=== PATIENT | female | born 1995 | race American Indian/Alaskan Native ===

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

== ENCOUNTER 2017-08-31 07:28 | Emergency (ER) | payer MEDICAID ==
[2017-08-31 07:52] VITALS: BP 113/76
--- NOTE | 2017-08-31 08:04 | Emergency Department Report ---
ED Female HPI - General Chief complaint: Urogenital-Female Stated complaint: HERPES Time Seen by Provider: 08/31/17 08:04 Source: patient Mode of arrival: Ambulatory Limitations: No Limitations - History of Present Illness Initial comments: Patient here requesting to be treated for herpes because she says she has a operated started 3 days ago. She said her partner got infected with herpes and was treated by a clinic and she is here to get treated also. She says she has vaginal sores as painful and this started 3 days ago. Negative fever or chills. Denies any nausea or vomiting. Denies any vaginal bleeding or discharge. Denies any abdominal pain. Last menstrual period was one 2017. Denies any urinary burning frequency or urgency. MD Complaint: possible STD (herpes simplex) Onset/Timin -: days(s) Location: labia Radiation: non-radiating Severity: mild Severity scale (0 -10): 3 Quality: burning Consistency: intermittent Improves with: none Worsens with: none Are you Now?: No Last Menstrual Period: 08/30/17 EDC: 06/06/18 Associated Symptoms: rash (vaginal rash). denies: vaginal discharge, vaginal bleeding, abdominal pain, nausea/vomiting, fever/chills, headaches, loss of appetite, dysuria, hematuria, seizure, shortness of breath, syncope, weakness - Related Data Sexually active: Yes Previous Rx's Medication Instructions Recorded Last Taken Type Ferrous Sulfate [Feosol 325 MG tab] 325 mg PO BID #60 tablet 10/09/16 Unknown Rx HYDROcodone/APAP 5-325 [[place] 2 each PO Q6H PRN #20 tablet 10/09/16 Unknown Rx 5-325 mg TAB] Ibuprofen [Motrin 600 MG tab] 600 mg PO Q6H #30 tablet 10/09/16 Unknown Rx Valacyclovir HCl [Valtrex] 1,000 mg PO TID 7 Days #21 tablet 08/31/17 Unknown Rx Allergies Allergy/AdvReac Type Severity Reaction Status Date / Time No Known Allergies Allergy Verified 10/07/16 11:52 ED Review of Systems ROS: Stated complaint: HERPES Other details as noted in HPI Comment: All other systems reviewed and negative Constitutional: no symptoms reported ENT: denies: ear pain, throat pain, congestion Respiratory: no symptoms reported Cardiovascular: denies: chest pain, palpitations, dyspnea on exertion, edema, syncope, paroxysmal nocturnal dyspnea Gastrointestinal: denies: abdominal pain, nausea, vomiting, diarrhea, constipation Genitourinary: other (vaginal rash). denies: urgency, dysuria, frequency, hematuria, discharge Skin: lesions Neurological: denies: headache, abnormal gait ED Past Medical Hx - Past Medical History Previous Medical History?: Yes Hx Hypertension: No Hx Congestive Heart Failure: No Hx Diabetes: No Hx Deep Vein Thrombosis: No Hx Renal Disease: No Hx Sickle Cell Disease: No Hx Seizures: No Hx Asthma: No Hx COPD: No Hx HIV: No Additional medical history: Herpes genitalia - Surgical History Past Surgical History?: No - Family History Family history: hypertension - Social History Smoking Status: Current Every Day Smoker Substance Use Type: Marijuana - Medications Home Medications: Home Medications Medication Instructions Recorded Confirmed Last Taken Type Ferrous Sulfate [Feosol 325 MG tab] 325 mg PO BID #60 tablet 10/09/16 Unknown Rx HYDROcodone/APAP 5-325 [[place] 2 each PO Q6H PRN #20 tablet 10/09/16 Unknown Rx 5-325 mg TAB] Ibuprofen [Motrin 600 MG tab] 600 mg PO Q6H #30 tablet 10/09/16 Unknown Rx Valacyclovir HCl [Valtrex] 1,000 mg PO TID 7 Days #21 tablet 08/31/17 Unknown Rx ED Physical Exam - General Limitations: No Limitations General appearance: alert, in no apparent distress - Head Head exam: Present: atraumatic, normocephalic, normal inspection - Eye Eye exam: Present: normal appearance, PERRL, EOMI. Absent: periorbital swelling , periorbital tenderness Pupils: Present: normal accommodation - ENT ENT exam: Present: normal exam, normal orophraynx, mucous membranes moist - Neck Neck exam: Present: normal inspection, full ROM, other (no C-spine tenderness). Absent: tenderness, meningismus, lymphadenopathy - Respiratory Respiratory exam: Present: normal lung sounds bilaterally. Absent: respiratory distress, chest wall tenderness - Cardiovascular Cardiovascular Exam: Present: regular rate, normal rhythm, normal heart sounds. Absent: systolic murmur, diastolic murmur - GI/Abdominal GI/Abdominal exam: Present: soft, normal bowel sounds. Absent: distended, tenderness, guarding, rebound, rigid - External exam: Present: lesions (herpetic lesions scattered sparsely to the vaginal area mostly to the labia majora. Tender to palpate. Erythema). Absent : erythema, swelling, lacerations, ecchymosis, bleeding - Expanded Exam Expanded Female exam: Present: herpetic lesions, vulvar erythema, vulvar tenderness. Absent: foreign body - Extremities Exam Extremities exam: Present: normal inspection, full ROM, normal capillary refill , other (No clubbing, cyanosis or edema. +2 pulses to all extremities. no neurovascular compromise.). Absent: tenderness, pedal edema, joint swelling, calf tenderness - Back Exam Back exam: Present: normal inspection, full ROM. Absent: tenderness, CVA tenderness (R), CVA tenderness (L), muscle spasm, paraspinal tenderness, vertebral tenderness, rash noted - Neurological Exam Neurological exam: Present: alert, oriented X3, normal gait - Psychiatric Psychiatric exam: Present: normal affect, normal mood - Skin Skin exam: Present: warm, dry, intact, normal color ED Course Vital Signs 08/31/17 07:47 Temperature 97.6 F Pulse Rate 62 Respiratory 16 Rate Blood Pressure 113/76 O2 Sat by Pulse 97 Oximetry - Reevaluation(s) Reevaluation #1: 08/31/17 08:11 Patient stable throughout ED stay. ED Medical Decision Making - Medical Decision Making ED course: Patient here to be treated for herpes breakout. She had contact with her boyfriend who was treated 3 days ago. Physical findings for scattered lesions to external vaginal area. Areas of erythema with tenderness palpated. I discussed patient diagnosis and treatment plan and she voiced understanding. 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 Patient was discharged home with prescription for valacyclovir and to avoid sexual activity until lesions are completely gone. Critical care attestation.: If time is entered above; I have spent that time in minutes in the direct care of this critically ill patient, excluding procedure time. ED Disposition Clinical Impression: Herpes genitalia Qualifiers: Herpes simplex infection site: unspecified Qualified Code(s): A60.00 - Herpesviral infection of urogenital system, unspecified Disposition: TO HOME OR SELFCARE Is pt being admited?: No Does the pt Need Aspirin: No Condition: Stable Instructions: Genital Herpes Simplex (ED), Safe Sex (ED) Additional Instructions: Please practice safe sex Follow-up with [facility] for primary care visits and also ANALYTICAL CHEMISTRY TEACHER visit. Call tomorrow to schedule appointment. Avoid having sexual activity until lesions are resolved. Prescriptions: Valacyclovir HCl [Valtrex] 1,000 mg PO TID 7 Days #21 tablet Referrals: [facility] [Outside] - 3-5 Days Forms: Work/School Release Form(ED)
== END 2017-08-31 08:20 | disposition home or self-care (01) ==
LOC: ED 07:28
DX: A60.00 Herpesviral infection of urogenital system, unspecified (principal); F17.200 Nicotine dependence, unspecified, uncomplicated; F12.10 Cannabis abuse, uncomplicated
CPT/HCPCS: 99282

== ENCOUNTER 2019-10-23 16:52 | Emergency (ER) | payer MEDICAID, OTHER ==
--- NOTE | 2019-10-23 17:28 | Event Note ---
ED Screening Note Date of service: 10/23/19 Time: 17:26 ED Screening Note: Pt complains of N/V x yesterday denies coffee ground emesis or abdominal pain denies diarrhea This initial assessment/diagnostic orders/clinical plan/treatment(s) is/are subject to change based on patients health status, clinical progression and re- assessment by fellow clinical providers in the ED. Further treatment and workup at subsequent clinical providers discretion. Patient/guardian urged not to elope from the ED as their condition may be serious if not clinically assessed and managed. Initial orders include: labs
[2019-10-23 17:52] LABS: Eosinophils % (Auto) 0.3 % (0.0-4.3); Monocytes # (Auto) 0.6 K/mm3 (0.0-0.8)
[2019-10-23 17:58] LABS: Basophils % (Auto) 0.5 % (0.0-1.8); Hemoglobin 13.7 gm/dl (10.1-14.3); Lymphocytes # (Auto) 1.1 K/mm3 (1.2-5.4); Mean Corpuscular HGB Conc 33 % (30-34); Mean Corpuscular Volume 87 fl (79-97); Mean Platelet Volume 8.2 fl (6-12); Platelet Count 247 K/mm3 (140-440); Red Blood Count 4.71 M/mm3 (3.65-5.03); Red Cell Distribution Width 14.3 % (13.2-15.2)
[2019-10-23 18:17] LABS: Alanine Aminotransferase 16 units/L (7-56); Albumin 4.7 g/dL (3.9-5); BUN/Creatinine Ratio 18; Blood Urea Nitrogen 14 mg/dL (7-17); Calcium 9.4 mg/dL (8.4-10.2); Hemolysis Index 7
[2019-10-23 18:23] LABS: Bilirubin,Direct < 0.2 mg/dL (0-0.2)
[2019-10-23] MEDS ORDERED: DICYCLOMINE 20 MG TAB PO ONE (19:59)
[2019-10-23] MEDS ORDERED: SODIUM CHLORIDE 0.9% 1000 ML 1,000 ML IV ONE (19:59)
[2019-10-23] MEDS ORDERED: ONDANSETRON 4 MG/2 ML INJ IV ONE (19:59)
--- NOTE | 2019-10-23 20:08 | Emergency Department Report ---
ED N/V/D HPI - General Chief complaint: Nausea/Vomiting/Diarrhea Stated complaint: VOMITING/SOB/CHEST PAIN Time Seen by Provider: 10/23/19 17:25 Source: patient Mode of arrival: Ambulatory Limitations: No Limitations - History of Present Illness Initial comments: Patient is a 24-year-old female presents emergency room with complaints of nausea and vomiting that began yesterday. She states that she has had approximately 6 episodes of vomiting. She denies any diarrhea. She states that she has had constipation for approximately 5 days. She has not taken anything for the constipation. She denies any abdominal pain, fever, hematemesis, hematochezia, melena, urinary symptoms. She denies any sick contacts. She states that the last thing she ate was some chicken wings from a store. She denies any past medical history. She states that she has adverse reactions to naproxen, Phenergan, tramadol but does not have a true allergy. She states her last menstrual cycle was October 10. - Related Data Previous Rx's Medication Instructions Recorded Last Taken Type Ferrous Sulfate [Feosol 325 MG tab] 325 mg PO BID #60 tablet 10/09/16 Unknown Rx HYDROcodone/APAP 5-325 [[place] 2 each PO Q6H PRN #20 tablet 10/09/16 Unknown Rx 5-325 mg TAB] Ibuprofen [Motrin 600 MG tab] 600 mg PO Q6H #30 tablet 10/09/16 Unknown Rx Valacyclovir HCl [Valtrex] 1,000 mg PO TID 7 Days #21 tablet 08/31/17 Unknown Rx Docusate Sodium [Colace] 100 mg PO BID PRN #14 capsule 10/23/19 Unknown Rx Hyoscyamine Subl [Levsin Sl 0.125 0.125 mg PO Q8HR PRN #10 tablet 10/23/19 Unknown Rx TAB] Ondansetron [Zofran Odt] 4 mg PO Q8HR PRN #14 tab.rapdis 10/23/19 Unknown Rx Promethazine HCl [Phenergan SUPPOS] 25 mg RC Q8HR PRN #7 supp.rect 10/23/19 Unknown Rx Simethicone [Gas-X] 62.5 mg PO DAILY PRN #1 strip 10/23/19 Unknown Rx Allergies Allergy/AdvReac Type Severity Reaction Status Date / Time No Known Allergies Allergy Verified 10/07/16 11:52 ED Review of Systems ROS: Stated complaint: VOMITING/SOB/CHEST PAIN Other details as noted in HPI Comment: All other systems reviewed and negative ED Past Medical Hx - Past Medical History Previous Medical History?: Yes Hx Hypertension: No Hx Congestive Heart Failure: No Hx Diabetes: No Hx Deep Vein Thrombosis: No Hx Renal Disease: No Hx Sickle Cell Disease: No Hx Seizures: No Hx Asthma: No Hx COPD: No Hx HIV: No Additional medical history: Herpes genitalia - Surgical History Past Surgical History?: No - Social History Smoking Status: Never Smoker Substance Use Type: None - Medications Home Medications: Home Medications Medication Instructions Recorded Confirmed Last Taken Type Ferrous Sulfate [Feosol 325 MG tab] 325 mg PO BID #60 tablet 10/09/16 Unknown Rx HYDROcodone/APAP 5-325 [[place] 2 each PO Q6H PRN #20 tablet 10/09/16 Unknown Rx 5-325 mg TAB] Ibuprofen [Motrin 600 MG tab] 600 mg PO Q6H #30 tablet 10/09/16 Unknown Rx Valacyclovir HCl [Valtrex] 1,000 mg PO TID 7 Days #21 tablet 08/31/17 Unknown Rx Docusate Sodium [Colace] 100 mg PO BID PRN #14 capsule 10/23/19 Unknown Rx Hyoscyamine Subl [Levsin Sl 0.125 0.125 mg PO Q8HR PRN #10 tablet 10/23/19 Unknown Rx TAB] Ondansetron [Zofran Odt] 4 mg PO Q8HR PRN #14 tab.rapdis 10/23/19 Unknown Rx Promethazine HCl [Phenergan SUPPOS] 25 mg RC Q8HR PRN #7 supp.rect 10/23/19 Unknown Rx Simethicone [Gas-X] 62.5 mg PO DAILY PRN #1 strip 10/23/19 Unknown Rx ED Physical Exam - General Limitations: No Limitations General appearance: alert, in no apparent distress - Head Head exam: Present: atraumatic, normocephalic - Eye Eye exam: Present: normal appearance - ENT ENT exam: Present: mucous membranes dry (mildly) - Respiratory Respiratory exam: Present: normal lung sounds bilaterally. Absent: respiratory distress, wheezes, rales, rhonchi, stridor, chest wall tenderness, accessory muscle use, decreased breath sounds, prolonged expiratory - Cardiovascular Cardiovascular Exam: Present: regular rate, normal rhythm, normal heart sounds. Absent: systolic murmur, diastolic murmur, rubs, gallop - GI/Abdominal GI/Abdominal exam: Present: soft, normal bowel sounds. Absent: distended, tenderness, guarding, rebound, rigid - Neurological Exam Neurological exam: Present: alert, oriented X3 - Psychiatric Psychiatric exam: Present: normal affect, normal mood - Skin Skin exam: Present: warm, dry, intact ED Course Vital Signs 10/23/19 10/23/19 10/23/19 16:57 17:26 21:53 Temperature 97.7 F 97.7 F Pulse Rate 109 H 82 81 Respiratory 18 18 Rate Blood Pressure 128/82 128/82 137/84 O2 Sat by Pulse 100 99 100 Oximetry 10/23/19 21:57 Temperature 97.7 F Pulse Rate 81 Respiratory Rate Blood Pressure O2 Sat by Pulse 100 Oximetry ED Medical Decision Making - Lab Data Result diagrams: 10/23/19 17:45 10/23/19 17:45 Lab Results 10/23/19 10/23/19 10/23/19 Range/Units 17:45 17:45 17:45 WBC 6.7 (4.5-11.0) K/mm3 RBC 4.71 (3.65-5.03) M/mm3 Hgb 13.7 (10.1-14.3) gm/dl Hct 41.0 (30.3-42.9) % MCV 87 (79-97) fl MCH 29 (28-32) pg MCHC 33 (30-34) % RDW 14.3 (13.2-15.2) % Plt Count 247 (140-440) K/mm3 Lymph % (Auto) 16.0 (13.4-35.0) % Wolfe % (Auto) 9.0 H (0.0-7.3) % Eos % (Auto) 0.3 (0.0-4.3) % Baso % (Auto) 0.5 (0.0-1.8) % Lymph # 1.1 L (1.2-5.4) K/mm3 Wolfe # 0.6 (0.0-0.8) K/mm3 Eos # 0.0 (0.0-0.4) K/mm3 Baso # 0.0 (0.0-0.1) K/mm3 Seg Neutrophils % 74.2 H (40.0-70.0) % Seg Neutrophils # 5.0 (1.8-7.7) K/mm3 Sodium 137 (137-145) mmol/L Potassium 3.9 (3.6-5.0) mmol/L Chloride 99.3 (98-107) mmol/L Carbon Dioxide 23 (22-30) mmol/L Anion Gap 19 mmol/L BUN 14 (7-17) mg/dL Creatinine 0.8 (0.7-1.2) mg/dL Estimated GFR > 60 ml/min BUN/Creatinine Ratio 18 % Glucose 106 H (65-100) mg/dL Calcium 9.4 (8.4-10.2) mg/dL Total Bilirubin 0.50 (0.1-1.2) mg/dL Direct Bilirubin < 0.2 (0-0.2) mg/dL Indirect Bilirubin 0.3 mg/dL AST 23 (5-40) units/L ALT 16 (7-56) units/L Alkaline Phosphatase 77 (35-129) units/L Total Protein 7.8 (6.3-8.2) g/dL Albumin 4.7 (3.9-5) g/dL Albumin/Globulin Ratio 1.5 % Lipase 23 (13-60) units/L HCG, Qual Negative (Negative) - Radiology Data Radiology results: report reviewed Ordering Physician: RIC NEFF Date of Service: 10/23/19 Procedure(s): XR abdomen 2V Accession Number(s): [id number] cc: RIC NEFF Fluoro Time In Minutes: Abdomen 2 views INDICATION: Abdominal pain IMPRESSION: Nonobstructive bowel gas pattern. Signer Name: Nitesh Dallas MD Signed: 10/23/2019 8:42 PM Workstation Name: [id number] Transcribed By: Dictated By: Nitesh Dallas MD Electronically Authenticated By: Nitesh Dallas MD Signed Date/Time: 10/23/192041 DD/ 40 TD/TT: - Medical Decision Making Patient is a 24-year-old female presents emergency room with complaints of nausea and vomiting that began yesterday. She states that she has had approximately 6 episodes of vomiting. She denies any diarrhea. She states that she has had constipation for approximately 5 days. She has not taken anything for the constipation. She denies any abdominal pain, fever, hematemesis, hematochezia, melena, urinary symptoms. She denies any sick contacts. She states that the last thing she ate was some chicken wings from a store. She denies any past medical history. She states that she has adverse reactions to naproxen, Phenergan, tramadol but does not have a true allergy. She states her last menstrual cycle was October 10. initial vitals with mild tachycardia which improved upon repeat. on exam: Mildly dry mucous membranes, no abdominal tenderness to palpation, no distention, no guarding, no rebound, no peritoneal signs, normal bowel sounds. Labs are stable. hCG is negative. XR abd: Nonobstructive bowel gas pattern. Patient given Bentyl, Zofran, 1 L of fluids and symptoms improved. Patient was able to tolerate p.o. intake while in the emergency department. Patient given prescription for Colace, Gas-X, Zofran, Phenergan suppository, Levsin. advised pt to please take medication as prescribed. If the oral Zofran is not working then may use the Phenergan suppository. Increase your fluid intake. Eat a bland diet, stay away from anything greasy or sugary. Follow-up with a primary care doctor. Return to the emergency room for any new or worsening symptoms. - Differential Diagnosis Gastroenteritis, gastritis, food poisoning, UTI, constipation, obstruction Critical care attestation.: If time is entered above; I have spent that time in minutes in the direct care of this critically ill patient, excluding procedure time. ED Disposition Clinical Impression: Nausea and vomiting Qualifiers: Vomiting type: unspecified Vomiting Intractability: non-intractable Qualified Code(s): R11.2 - Nausea with vomiting, unspecified Constipation Qualifiers: Constipation type: unspecified constipation type Qualified Code(s): K59.00 - Constipation, unspecified Disposition: DC-01 TO HOME OR SELFCARE Is pt being admited?: No Does the pt Need Aspirin: No Condition: Stable Instructions: Constipation (ED), High Fiber Diet (ED), Acute Nausea and Vomiting (ED) Additional Instructions: Please take medication as prescribed. If the oral Zofran is not working then may use the Phenergan suppository. Increase your fluid intake. Eat a bland diet, stay away from anything greasy or sugary. Follow-up with a primary care doctor. Return to the emergency room for any new or worsening symptoms. Prescriptions: Docusate Sodium [Colace] 100 mg PO BID PRN #14 capsule PRN Reason: constipation Simethicone [Gas-X] 62.5 mg PO DAILY PRN #1 strip PRN Reason: gas Hyoscyamine Subl [Levsin Sl 0.125 TAB] 0.125 mg PO Q8HR PRN #10 tablet PRN Reason: abdominal cramping Promethazine HCl [Phenergan SUPPOS] 25 mg RC Q8HR PRN #7 supp.rect PRN Reason: Nausea And Vomiting Ondansetron [Zofran Odt] 4 mg PO Q8HR PRN #14 tab.rapdis PRN Reason: Nausea And Vomiting Referrals: JAMEL LOZOYA MD [Primary Care Provider] - 2-3 Days ARLEEN VERA MD [Staff Physician] - 2-3 Days [facility] [Outside] - 2-3 Days [facility] [Outside] - 2-3 Days Time of Disposition: 21:36 Print Language: CAMBODIAN
--- NOTE | 2019-10-23 20:46 | XRay Report ---
Abdomen 2 views INDICATION: Abdominal pain IMPRESSION: Nonobstructive bowel gas pattern. Signer Name: Nitesh Dallas MD Signed: 10/23/2019 8:42 PM Workstation Name: [id number]
[2019-10-23 21:24] LABS: Bilirubin,Urine NEG (Negative); Blood,Urine NEG (Negative); Color,Urine Yellow (Yellow); Mucus,Urine FEW /HPF; Urobilinogen,Urine < 2.0 mg/dL (<2.0)
[2019-10-23 21:57] VITALS: BP 137/84
== END 2019-10-23 22:00 | disposition home or self-care (01) ==
LOC: ED 16:52
DX: K59.00 Constipation, unspecified (principal); R11.2 Nausea with vomiting, unspecified; R07.9 Chest pain, unspecified; R06.02 Shortness of breath; Z79.899 Other long term (current) drug therapy
CPT/HCPCS: 36415; 74019; 80048; 80076; 81001; 83690; 84703; 85025; 96361; 96374; 99284; J2405; J7030

== ENCOUNTER 2022-03-27 23:25 | Emergency (ER) | payer MEDICAID ==
[2022-03-28 03:15] VITALS: BP 120/80
== END 2022-03-28 15:01 | disposition left against medical advice (07) ==
LOC: ED 23:25
DX: O21.9 Vomiting of pregnancy, unspecified (principal); Z53.21 Procedure and treatment not carried out due to patient leaving prior to being seen by health care provider

== ENCOUNTER 2022-03-28 18:49 | Emergency (ER) | payer MEDICAID | END 2022-03-29 10:58 | disposition left against medical advice (07) | LOC: ED 18:49 | DX: R10.9 Unspecified abdominal pain (principal); Z53.21 Procedure and treatment not carried out due to patient leaving prior to being seen by health care provider ==

== ENCOUNTER 2022-04-03 14:05 | Emergency (ER) | payer MEDICAID ==
[2022-04-03 14:15] VITALS: BP 108/60
[2022-04-03] MEDS ORDERED: ONDANSETRON 4 MG ODT TAB PO ONE (19:41)
== END 2022-04-03 22:05 | disposition left against medical advice (07) ==
LOC: ED 14:05
DX: R10.9 Unspecified abdominal pain (principal); Z53.21 Procedure and treatment not carried out due to patient leaving prior to being seen by health care provider
CPT/HCPCS: J3490; Q0162